=== PATIENT | male | born 1960 | race Hispanic/Latino ===

== ENCOUNTER 2019-11-16 10:53 | Emergency (ER) | payer SELFPAY ==
[2019-11-16] MEDS ORDERED: FUROSEMIDE 40 MG/4 ML INJ IV ONE (11:41)
--- NOTE | 2019-11-16 11:47 | Emergency Department Report ---
ED Shortness of Breath HPI - General Chief Complaint: Extremity Problem,Nontraumatic Stated Complaint: CHF/PAIN/SWELLING Time Seen by Provider: 11/16/19 11:34 Source: patient Mode of arrival: Wheelchair Limitations: No Limitations - History of Present Illness Initial Comments: Mr. Babb is a 59 years old male with history of congestive heart failure, hy pertension and diabetes. Patient stated that he was diagnosed with congestive heart failure 1 month ago is currently taking Lasix. Patient presented to the ER complaining of difficulty breathing, difficulty laying flat and significant swelling to both lower extremities and scrotal area. Patient stated that his symptoms get worse for the last 2 to 3 days. Patient denied any fever or chills. No chest pain. MD Complaint: shortness of breath, cough - Related Data Allergies Allergy/AdvReac Type Severity Reaction Status Date / Time No Known Allergies Allergy Verified 11/16/19 11:00 ED Review of Systems ROS: Stated complaint: CHF/PAIN/SWELLING Other details as noted in HPI Comment: All other systems reviewed and negative Constitutional: denies: chills, fever Respiratory: cough, orthopnea, shortness of breath, SOB with exertion, SOB at rest. denies: wheezing Cardiovascular: palpitations. denies: chest pain Gastrointestinal: denies: abdominal pain, nausea, vomiting, diarrhea, constipation, hematemesis, melena, hematochezia Musculoskeletal: denies: back pain Neurological: denies: headache, weakness, numbness, paresthesias, confusion, abnormal gait ED Past Medical Hx - Past Medical History Hx Hypertension: Yes Hx Heart Attack/AMI: Yes Hx Congestive Heart Failure: Yes Hx Diabetes: Yes - Surgical History Past Surgical History?: Yes Additional Surgical History: HERNIA , APPENDECTOMY ED Physical Exam - General Limitations: No Limitations General appearance: in distress (Moderate respiratory distress.) - Head Head exam: Present: atraumatic, normocephalic, normal inspection - Eye Eye exam: Present: normal appearance, PERRL - ENT ENT exam: Present: normal exam, normal orophraynx, mucous membranes moist - Neck Neck exam: Present: normal inspection, full ROM. Absent: tenderness, meningismus, lymphadenopathy, thyromegaly - Respiratory Respiratory exam: Present: respiratory distress, rales, decreased breath sounds. Absent: wheezes, rhonchi, chest wall tenderness, accessory muscle use, prolonged expiratory - Cardiovascular Cardiovascular Exam: Present: tachycardia - GI/Abdominal GI/Abdominal exam: Present: soft, normal bowel sounds. Absent: distended, tenderness, guarding, rebound, rigid, organomegaly, mass, bruit, pulsatile mass, hernia - exam: Present: scrotal swelling. Absent: testicular tenderness, urethral discharge External exam: Present: swelling. Absent: erythema, bleeding - Extremities Exam Extremities exam: Present: normal inspection, full ROM, normal capillary refill, pedal edema (3+). Absent: tenderness, joint swelling, calf tenderness - Back Exam Back exam: Present: normal inspection, full ROM. Absent: CVA tenderness (R), CVA tenderness (L), muscle spasm, paraspinal tenderness, vertebral tenderness - Neurological Exam Neurological exam: Present: alert, oriented X3, CN II-XII intact, normal gait, reflexes normal. Absent: motor sensory deficit - Psychiatric Psychiatric exam: Present: normal mood - Skin Skin exam: Present: warm, intact, normal color ED Course Vital Signs 11/16/19 11/16/19 11/16/19 11:00 11:03 11:37 Temperature 97.5 F L 97.5 F L Pulse Rate 109 H 109 H 99 H Respiratory 16 20 14 Rate Blood Pressure 117/86 Blood Pressure 117/86 [Left] O2 Sat by Pulse 98 97 Oximetry 11/16/19 11/16/19 11/16/19 11:45 12:00 12:01 Temperature 98 F Pulse Rate 108 H Respiratory 16 19 Rate Blood Pressure 127/86 Blood Pressure [Left] O2 Sat by Pulse 97 97 Oximetry ED Medical Decision Making - Lab Data Result diagrams: 11/16/19 11:57 11/16/19 11:57 - EKG Data -: EKG Interpreted by [place] EKG shows normal: sinus rhythm Rate: tachycardia - EKG Data Interpretation: no acute changes - Radiology Data Radiology results: report reviewed - Medical Decision Making Mr. Babb is a 59 years old male with history of congestive heart failure, hyp ertension and diabetes. Patient stated that he was diagnosed with congestive heart failure 1 month ago is currently taking Lasix. Patient presented to the ER complaining of difficulty breathing, difficulty laying flat and significant swelling to both lower extremities and scrotal area. Patient stated that his symptoms get worse for the last 2 to 3 days. Patient denied any fever or chills. No chest pain. EKG shows sinus tachycardia, no ST elevation. Chest x-ray showed pulmonary edema. Labs reviewed and showed a BNP of 12,993. Patient received Lasix 60 mg IV. I discussed the patient with Dr. Hubbard, he agreed to admit the patient to medical service for further management. Critical Care Time: Yes Critical care time in (mins) excluding proc time.: 30 Critical care attestation.: If time is entered above; I have spent that time in minutes in the direct care of this critically ill patient, excluding procedure time. ED Disposition Clinical Impression: Acute respiratory distress, Acute CHF Disposition: DC-09 OP ADMIT IP TO THIS HOSP Is pt being admited?: Yes Condition: Stable
[2019-11-16 12:33] LABS: Basophils % (Auto) 0.6 % (0.0-1.8); Eosinophils % (Auto) 0.3 % (0.0-4.3); Hematocrit 44.4 % (35.5-45.6); Hemoglobin 14.7 gm/dl (11.8-15.2); Lymphocytes # (Auto) 1.1 K/mm3 (1.2-5.4); Lymphocytes % (Auto) 15.8 % (13.4-35.0); Mean Corpuscular HGB Conc 33 % (32-34); Mean Corpuscular Volume 97 fl (84-94); Monocytes # (Auto) 0.5 K/mm3 (0.0-0.8); Monocytes % (Auto) 7.3 % (0.0-7.3); Platelet Count 162 K/mm3 (140-440); Red Blood Count 4.57 M/mm3 (3.65-5.03); Red Cell Distribution Width 15.3 % (13.2-15.2)
[2019-11-16 12:44] LABS: INR 1.15 (0.87-1.13)
[2019-11-16 12:45] LABS: Partial Thromboplastin Time 29.6 Sec. (24.2-36.6)
[2019-11-16 12:48] LABS: BUN/Creatinine Ratio 24; Blood Urea Nitrogen 22 mg/dL (9-20); Calcium 9.2 mg/dL (8.4-10.2); Hemolysis Index 7
[2019-11-16 12:53] LABS: Albumin 3.4 g/dL (3.9-5); Bilirubin,Direct 0.6 mg/dL (0-0.2)
--- NOTE | 2019-11-16 12:56 | XRay Report ---
CHEST 1 VIEW INDICATION: Dyspnea. COMPARISON: None. FINDINGS: Support devices: None. Heart: Normal. Lungs/Pleura: There are low lung volumes. Given this, bibasilar opacities may be atelectatic. IMPRESSION: 1. Low lung volumes with bibasilar opacities that may be atelectatic. 2. There is a paucity of gas within the included upper abdomen. Does this patient have clinical findi ngs for ascites Signer Name: Vj Camarena MD Signed: 11/16/2019 12:52 PM Workstation Name: [id number]
--- NOTE | 2019-11-16 13:05 | History and Physical Report ---
History of Present Illness Chief complaint: I feel weak, and im short of breath all the time History of present illness: 59 YO male with End Stage Systolic CHF, HTN, DM, NV Medication Noncompliance presents to ED for evaluation. Patient states that he had experienced shortness of breath, weakness, difficulty breathing, over the last 3 months with persistently worsening symptoms over the past 3 weeks. Patient also reports that he has "been miserable" over the past 2 to 3 days. Patient has presented to multiple [facility] the [facility] region without improvement in his status. Patient acknowledges orthopnea, paroxysmal nocturnal dyspnea, decreased exercise tolerance, dyspnea at rest, bilateral lower extremity edema, scrotal edema, as well as abdominal distention. Patient acknowledges 15 pound w eight gain over the past 3 weeks. Patient transported to [facility] via private vehicle for further care and evaluation of the aforementioned symptoms. Patient seen and evaluated in the emergency department. Lab and imaging studies reviewed. Patient found to have past history of end-stage congestive heart failure with progressively worsening symptoms. Patient has increased bedbound status and spends up to 20 hours in bed per day, and has a palliative performance score of 40%, and requires 4/6 assistance with activities of daily living. Patient counseled regarding prognosis. Advanced care planning conducted in the emergency department. Patient informed of poor prognosis. Patient elects to be discharged home with outpatient hospice evaluation and care. Past History Past Medical History: diabetes, heart failure, hypertension, other (See HPI) Past Surgical History: appendectomy, hernia repair Social history: single. denies: smoking, alcohol abuse Family history: diabetes, hypertension Medications and Allergies Allergies Allergy/AdvReac Type Severity Reaction Status Date / Time No Known Allergies Allergy Verified 11/16/19 11:00 Home Medications Medication Instructions Recorded Confirmed Last Taken Type Benzonatate 200 mg PO DAILY PRN 11/16/19 11/16/19 11/16/19 History Furosemide [Lasix] 20 mg PO QDAY 11/16/19 11/16/19 11/16/19 History LORazepam [Ativan] 1 mg PO QHS #30 tab 11/16/19 Unknown Rx Morphine ER [Ms Contin ER] 15 mg PO BID PRN #28 tablet 11/16/19 Unknown Rx Potassium Chloride [K-Dur] 10 meq PO QDAY 11/16/19 11/16/19 11/16/19 History Review of Systems Constitutional: weight gain, no weight loss Cardiovascular: orthopnea, shortness of breath, dyspnea on exertion, paroxysmal nocturnal dyspnea, leg edema, decreased exercise tolerance, no chest pain Respiratory: no cough, no cough with sputum, no excessive sputum Gastrointestinal: no nausea, no vomiting, no diarrhea Genitourinary Male: no hematuria, no flank pain, no discharge, no urinary frequency Rectal: no pain, no incontinence, no bleeding Musculoskeletal: no neck stiffness, no shooting arm pain, no arm numbness/tingling Integumentary: no rash, no pruritis, no sores, no wounds Neurological: no head injury, no paralysis, no weakness, no parathesias, no numbness Psychiatric: anxiety, no memory loss, no sleep disturbances, no insomnia Endocrine: no heat intolerance, no polyphagia, no excessive thirst, no polyuria, no excessive sweating Hematologic/Lymphatic: no easy bruising, no easy bleeding Allergic/Immunologic: no allergic rhinitis, no wheezing, no persistent infections, no angioedema Exam - Constitutional Vitals: Temp Pulse Resp BP Pulse Ox 98 F 108 H 19 127/86 97 11/16/19 12:00 11/16/19 12:01 11/16/19 12:01 11/16/19 12:01 11/16/19 12:01 General appearance: Present: mild distress - EENT Eyes: Present: PERRL ENT: hearing intact, clear oral mucosa - Neck Neck: Present: supple, normal ROM, masses or JVD - Respiratory Respiratory effort: normal Respiratory: bilateral: diminished, rhonchi - Cardiovascular Rhythm: regular Heart Sounds: Present: S1 & S2. Absent: rub, click - Extremities Extremities: pulses symmetrical Extremity abnormal: edema Peripheral Pulses: within normal limits - Abdominal General gastrointestinal: Present: soft, non-tender, distended, normal bowel sounds, other (Ascites present) Male genitourinary: Present: normal - Integumentary Integumentary: Present: clear, warm, dry - Musculoskeletal Musculoskeletal: generalized weakness - Psychiatric Psychiatric: appropriate mood/affect, intact judgment & insight - Neurologic Neurologic: CNII-XII intact, moves all extremities HEART Score - HEART Score Troponin: Troponin T 0.026 ng/mL (0.00-0.029) 11/16/19 11:57 Results - Labs CBC & Chem 7: 11/16/19 11:57 11/16/19 11:57 Labs: Abnormal lab results 11/16/19 11/16/19 11/16/19 Range/Units 11:57 11:57 11:57 MCV 97 H (84-94) fl RDW 15.3 H (13.2-15.2) % Lymph # 1.1 L (1.2-5.4) K/mm3 Seg Neutrophils % 76.0 H (40.0-70.0) % INR 1.15 H (0.87-1.13) Sodium 134 L (137-145) mmol/L Potassium 5.1 H (3.6-5.0) mmol/L BUN 22 H (9-20) mg/dL Glucose 265 H (75-100) mg/dL Direct Bilirubin (0-0.2) mg/dL Alkaline Phosphatase (35-129) units/L NT-Pro-B Natriuret Pep (0-900) pg/mL Albumin (3.9-5) g/dL 11/16/19 Range/Units 11:57 MCV (84-94) fl RDW (13.2-15.2) % Lymph # (1.2-5.4) K/mm3 Seg Neutrophils % (40.0-70.0) % INR (0.87-1.13) Sodium (137-145) mmol/L Potassium (3.6-5.0) mmol/L BUN (9-20) mg/dL Glucose (75-100) mg/dL Direct Bilirubin 0.6 H (0-0.2) mg/dL Alkaline Phosphatase 130 H (35-129) units/L NT-Pro-B Natriuret Pep 68931 H (0-900) pg/mL Albumin 3.4 L (3.9-5) g/dL Assessment and Plan - Patient Problems (1) End stage heart failure Status: Acute Plan to address problem: Patient has clinical symptomatology consistent with end-stage congestive heart failure. Patient elects to have outpatient hospice care. Hospice care referral placed. Patient pending evaluation upon arrival at his home. Patient elects to have comfort care measures only. (2) Agitation Status: Acute Plan to address problem: Ativan as needed, supportive care. (3) Hypertension Status: Acute Qualifiers: Hypertension type: essential hypertension Qualified Code(s): I10 - Essential (primary) hypertension Plan to address problem: Monitor blood pressure every shift, continue medical management. (4) Diabetes Status: Acute Plan to address problem: Consistent carbohydrate diet, insulin therapy, Accu-Chek. (5) Advance care planning Status: Acute Plan to address problem: Disease education conducted, patient has poor prognosis. Patient knowledges understanding and agreement with care plan +30 minutes.
[2019-11-16 13:28] VITALS: BP 120/84
== END 2019-11-16 13:56 | disposition admitted as inpatient to this hospital (09) ==
LOC: ED 10:53
DX: I50.9 Heart failure, unspecified (principal); J06.9 Acute upper respiratory infection, unspecified; I11.0 Hypertensive heart disease with heart failure; E11.9 Type 2 diabetes mellitus without complications
CPT/HCPCS: 36415; 71045; 80048; 80076; 83880; 84484; 85025; 85610; 85730; 93005; 96374; 99284; J1940